=== PATIENT | female | born 1960 | race Caucasian/White ===

== ENCOUNTER 2022-05-23 18:10 | Emergency (ER) | payer OTHER, SELFPAY ==
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
[2022-05-23 20:03] VITALS: BP 140/76; PULSE 86; RESP 18; TEMP 36.8; O2SAT 95; BMI 34.7
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
[2022-05-24] VITALS: BP 116/70; PULSE 72; RESP 14; TEMP 36.6; O2SAT 93
[2022-05-24] MEDS: Ibuprofen 600 MG TABLET PO (01:12)
--- NOTE | 2022-05-24 01:16 | PC.NURSE ---
Pt medicated as ordered and tolerated well. Discharge instructions reviewed with pt. Pt verbalizes understanding.
== END 2022-05-24 01:17 | disposition home or self-care (01) ==
PROVIDERS: Emergency Provider Emergency Medicine
DX: S13.4XXA Sprain of ligaments of cervical spine, initial encounter (principal); V43.52XA Car driver injured in collision with other type car in traffic accident, initial encounter; Y93.89 Activity, other specified; Y92.414 Local residential or business street as the place of occurrence of the external cause; Y99.9 Unspecified external cause status
CPT/HCPCS: 70450; 72125; 99284